=== PATIENT | male | born 1995 | race Caucasian/White ===

== ENCOUNTER 2016-09-01 04:25 | Emergency (ER) | payer SELFPAY ==
[2016-09-01] MEDS ORDERED: SODIUM CHLORIDE 0.9% 1000ML 1,000 ML IV ONE ×2 (04:45→05:50)
[2016-09-01 05:04] LABS: BASOPHILS % (AUTO) 1 % (0-3); EOSINOPHILS % (AUTO) 1 % (0-9); HEMATOCRIT 47 % (39-53); MEAN CORPUSCULAR HGB CONC 34.8 gm/dl (32.0-36.0); MONOCYTES % (AUTO) 2.7 % (0-12); NEUTROPHILS % (AUTO) 83.5 % (37-80)
[2016-09-01 05:08] LABS: MEAN CORPUSCULAR VOLUME 78 fL (80-100)
[2016-09-01 05:10] LABS: ALBUMIN 3.9 gm/dl (3.4-5.0); CALCIUM 8.2 mg/dl (8.5-10.1)
[2016-09-01] MEDS ORDERED: THIAMINE 100 MG/ML 100 MG/ML SOL IV ONE (06:00)
[2016-09-01] MEDS ORDERED: THIAMINE 100 MG/ML 100 MG/ML SOL ONE (06:01)
[2016-09-01 06:19] LABS: AMPHETAMINES NEGATIVE (NEGATIVE); METHADONE NEGATIVE (NEGATIVE); OPIATES(OP13) NEGATIVE (NEGATIVE); PROPOXYPHENE(PPX) NEGATIVE (NEGATIVE); TRICYCLIC ANTIDEPRESSANTS NEGATIVE (NEGATIVE)
[2016-09-01 06:20] LABS: METHAMPHETAMINES NEGATIVE (NEGATIVE); OXYCODONE(OXY) NEGATIVE (NEGATIVE)
[2016-09-01 09:17] VITALS: BP 152/74; PULSE 68; RESP 20; TEMP 98.6; O2SAT 99
== END 2016-09-01 09:35 | disposition home or self-care (01) | DRG 897 ==
LOC: ED 04:25
DX: F10.129 Alcohol abuse with intoxication, unspecified (principal); Y90.6 Blood alcohol level of 120-199 mg/100 ml
CPT/HCPCS: 80053; 80305; 80307; 85025; 99285